=== PATIENT | male | born 1975 ===

== ENCOUNTER → 2022-08-29 13:53 | Outpatient (CLI) | payer OTHER, SELFPAY ==
--- NOTE | ~2022-08-29 | MR_ITS ---
EXAMINATION: MR abdomen wo/w con DATE: 08/29/2022 15:16 INDICATION: Liver mass. Left abdominal pain. TECHNIQUE: Magnetic resonance imaging (MRI) of the abdomen was performed without and with 15 mL Multi Ethel intravenous contrast. COMPARISON: None. FINDINGS: There is a 2.2 cm mass in left hepatic lobe with peripheral arterial hyperenhancement and portal veno us phase fill-in. There is a 2.1 cm mass in left hepatic lobe with delayed hyperenhancement. No washo ut. There are 2 cysts in the liver measuring up to 2.1 cm. The gallbladder, spleen, pancreas, adrenal glands, and kidneys are normal. There are no dilated loops of bowel. There are no pathologically enl arged lymph nodes. There is no free intraperitoneal fluid. IMPRESSION: 1. Two hyperenhancing liver masses measuring up to 2.2 cm. In the absence of known malignancy or recycling manager marcel liver disease, these findings are likely benign masses such as hemangiomas or focal nodular hyper plasia. Reviewed, dictated and finalized at location A. [facility]LE MANAGER IMPRESSION: 1. Two hyperenhancing liver masses measuring up to 2.2 cm. In the absence of kn own malignancy or chronic liver disease, these findings are likely benign saira s such as hemangiomas or focal nodular hyperplasia.
== END ==
PROVIDERS: PCP Emergency Medicine
DX: R10.9 Unspecified abdominal pain (principal); K76.89 Other specified diseases of liver
CPT/HCPCS: 74183; A9577